=== PATIENT | male | born 1975 | race Caucasian/White ===

== ENCOUNTER 2018-03-31 06:18 | Emergency (ER) | payer MEDICAID, OTHER ==
[~2018-03-31] VITALS: Ht 170.2 cm; Wt 80.2 kg
[2018-03-31 06:20] VITALS: Ht 170.2 cm; Wt 80.2 kg
[2018-03-31] MEDS ORDERED: SOD CHLORIDE 0.9% 1,000 ML IV STA (06:34)
[2018-03-31] MEDS ORDERED: ONDANSETRON 4 MG INJ IV STA (06:34)
[2018-03-31] MEDS ORDERED: INSULIN REGULAR, HUMAN 100 UNIT/1 ML 3ML VIAL SC ONE (07:30)
[2018-03-31] MEDS ORDERED: LANT3I SC (07:39)
--- NOTE | 2018-03-31 07:54 | ERD ---
ER Documentation Chief Complaint Chief Complaint abdominal pain since yesterday. also c/o vomiting HPI This is a 42-year-old male with a history of type 2 diabetes who is noncompliant with his insulin regimen who presents to the emergency room for evaluation of nausea. The patient states that he has not taken his insulin in over a month and states that he is blood sugar is elevated. The patient denies any fevers chills chest pain or vomiting. The patient states that he was normally taking at 60 units of Lantus twice a day and has not had in over 1 month ROS All systems reviewed and are negative except as per history of present illness. Medications Home Meds Active Scripts Insulin Glargine* (Lantus*) 100 Unit/Ml Soln, 60 UNIT SC BID, #1 VIAL Prov:CHANG MCKAYCATHERINE DELCID 03/31/18 Allergies Allergies: Coded Allergies: No Known Drug Allergies (Verified Allergy, Unknown, 03/31/18) PMhx/Soc History of Surgery: No Anesthesia Reaction: No Hx Neurological Disorder: No Hx Respiratory Disorders: No Hx Cardiac Disorders: No Hx Psychiatric Problems: No Hx Miscellaneous Medical Probl: Yes (DM) Hx Alcohol Use: No Hx Substance Use: No Hx Tobacco Use: No Smoking Status: Never smoker Physical Exam Vitals Vital Signs Date Temp Pulse Resp B/P (MAP) Pulse Ox O2 O2 Flow FiO2 Time Delivery Rate 03/31/18 97.2 130 18 137/98 97 06:20 (111) Physical Exam INITIAL VITAL SIGNS: Reviewed by me GENERAL: The patient is well developed and appropriate for usual state of health in no apparent distress HEENT: Pupils equal, round, and reactive to light. EOMI. There is no scleral icterus. NECK: C-spine is soft and supple, there is no meningismus. There is no cervical lymphadenopathy. LUNGS: Clear to auscultation bilaterally. There are no rales, wheezes or rhonchi. HEART: Tachycardic, no murmurs, clicks, rubs or gallops. ABDOMEN: Soft, non-tender, non-distended. There are bowel sounds in all four quadrants. No rebound or guarding. EXTREMITIES: There is no peripheral cyanosis or edema. No focal swelling or erythema. NEUROLOGICAL: The patient moves all four extremities with 5/5 strength. Cranial nerves II - XII are intact. Normal gait. Alert and oriented SKIN: There is no apparent rash or petechiae. HEME/LYMPHATIC: There is no evidence of excessive bruising or lymphedema. PSYCHIATRIC: The patient does not appear anxious or depressed. Result Diagram: 03/31/18 0650 03/31/18 0650 Results 24 hrs Laboratory Tests Test 03/31/18 06:50 03/31/18 06:59 White Blood Count 10.0 10^3/ul Red Blood Count 6.09 10^6/ul Hemoglobin 17.8 g/dl Hematocrit 52.2 % Mean Corpuscular Volume 85.7 fl Mean Corpuscular Hemoglobin 29.2 pg Mean Corpuscular Hemoglobin Concent 34.1 g/dl Red Cell Distribution Width 12.3 % Platelet Count 179 10^3/UL Mean Platelet Volume 12.5 fl Immature Granulocytes % 0.300 % Neutrophils % 89.0 % Lymphocytes % 7.0 % Monocytes % 2.7 % Eosinophils % 0.8 % Basophils % 0.2 % Nucleated Red Blood Cells % 0.0 /100WBC Immature Granulocytes # 0.030 10^3/ul Neutrophils # 8.9 10^3/ul Lymphocytes # 0.7 10^3/ul Monocytes # 0.3 10^3/ul Eosinophils # 0.1 10^3/ul Basophils # 0.0 10^3/ul Nucleated Red Blood Cells # 0.0 10^3/ul Sodium Level 142 mmol/L Potassium Level 4.0 mmol/L Chloride Level 102 mmol/L Carbon Dioxide Level 26 mmol/L Anion Gap 14 Blood Urea Nitrogen 13 mg/dl Creatinine 0.56 mg/dl Est Glomerular Filtrat Rate mL/min > 60 mL/min Glucose Level 355 mg/dl Calcium Level 9.4 mg/dl Total Bilirubin 0.9 mg/dl Direct Bilirubin 0.00 mg/dl Indirect Bilirubin 0.9 mg/dl Aspartate Amino Transf (AST/SGOT) 26 IU/L Alanine Aminotransferase (ALT/SGPT) 37 IU/L Alkaline Phosphatase 116 IU/L Troponin I < 0.012 ng/ml Total Protein 7.4 g/dl Albumin 4.4 g/dl Globulin 3.00 g/dl Albumin/Globulin Ratio 1.46 Lipase 80 U/L Urine Color YELLOW Urine Clarity CLEAR Urine pH 5.0 Urine Specific [place] 1.036 Urine Ketones NEGATIVE mg/dL Urine Nitrite NEGATIVE mg/dL Urine Bilirubin NEGATIVE mg/dL Urine Urobilinogen NEGATIVE mg/dL Urine Leukocyte Esterase NEGATIVE Larry/ul Urine Microscopic RBC 0 /HPF Urine Microscopic WBC 0 /HPF Urine Hemoglobin NEGATIVE mg/dL Urine Glucose 3+ mg/dL Urine Total Protein 2+ mg/dl Current Medications Medications Dose Sig/[place] Start Time Status Last (Trade) Ordered Route PRN Stop Time Admin Dose Reason Admin Sodium 1,000 ml @ Q1H STAT 03/31/18 DC 03/31/18 Chloride 1,000 mls/hr IV 06:34 06:57 03/31/18 07:33 Ondansetron 4 mg ONCE STAT 03/31/18 DC 03/31/18 HCl (Zofran IV 06:34 06:57 Inj) 03/31/18 06:35 Insulin 10 unit ONCE ONCE 03/31/18 DC Human SC 07:30 Regular 03/31/18 (Humulin R) 07:33 Procedures/MDM EKG: Rate/Rhythm: Sinus tachycardia QRS, ST, T-waves: [No changes consistent w/ acute ischemia] Impression: [No evidence of ischemia or arrhythmia] This 42-year-old male presents to the emergency room for evaluation of nausea and refill of his insulin medication. The patient states he is not taking in over 1 month. On my exam the patient was slightly tachycardic. An IV line was established and he was given IV fluids and Zofran. Lab work does reveal a glucose level of 300 55 however the patient has no ketones in the urine and CO2 levels are normal with no signs of DKA. The patient was given 10 units of insulin subcutaneously and will be discharged home with a prescription for Lantus 60 units twice daily. The patient is no longer tachycardic and remains hemodynamically stable at this time. The patient was given strict return precautions and feels comfortable with her plan of care. Departure Diagnosis: Primary Impression: Uncontrolled diabetes mellitus Additional Impressions: Hyperglycemia Noncompliance with medication regimen Condition: Stable RICHARD MCKAY DO Mar 31, 2018 07:54
[2018-03-31] MEDS ORDERED: HUM100IN4 SQ (08:14)
== END 2018-03-31 10:34 | disposition home or self-care (01) ==
LOC: E/R 06:18
DX: E11.65 Type 2 diabetes mellitus with hyperglycemia (principal); Z79.4 Long term (current) use of insulin; Z91.19 Patient's noncompliance with other medical treatment and regimen
CPT/HCPCS: 80053; 81001; 82962; 83690; 84484; 85025; J1815; J2405; J7030; 36415; 96374